=== PATIENT | female | born 1945 | race Caucasian/White ===

== ENCOUNTER 2016-08-17 14:35 | Inpatient (IN) | payer OTHER, MEDICARE ==
[~2016-08-17] VITALS: Ht 172.7 cm; Wt 78.5 kg
[2016-08-17] VITALS (8 sets, daily range): BP systolic 105–160; BP diastolic 60–94; PULSE 78–91; RESP 14–24; TEMP 97.8–98.2; O2SAT 88–95
[~2016-08-17 14:35] MED LIST: ADVAI500I PO; ATOR40TA PO; BUPR-86 PO; CALC500T21 PO; DUONI NEB; LISI-363 PO; METO25CR PO; OMEP20TA39 PO; OXYB5TAB PO; PRED20 PO; SPIRCAP INH; XANA0.5T PO; Z.0.OXYGENDME NC; ZITHTAB6 PO
[2016-08-17] MEDS: RESP: ALBUTEROL 2.5 MG/IPRATROPIUM 0.5 MG NEB (SCH) INH ×2 (15:14→15:15)
[2016-08-17] MEDS ORDERED: methylPREDNISolone SOD SUCC 125 MG/2 ML VIAL IVP ONE (15:15)
[2016-08-17] MEDS ORDERED: SODIUM CHLORIDE 0.9% FLUSH 5 ML FLUSH IVF PRN (15:15)
--- NOTE | 2016-08-17 16:04 | RADRPT ---
EXAM DATE/TIME: 08/17/2016 15:31 [facility] COMPARISON: CHEST PA & LAT, April 04, 2016, 11:23. CHEST SINGLE AP, May 05, 2015, 9:45. INDICATIONS : Shortness of breath, cough, congestion. MEDICAL HISTORY : Hypertension. Chronic obstructive pulmonary disease. Asthma. SURGICAL HISTORY : None. ENCOUNTER: Initial ACUITY: 2 days PAIN SCORE: 2/10 LOCATION: Bilateral upper chest FINDINGS: A single view of the chest demonstrates the lungs to be symmetrically aerated without evidence of mas s, infiltrate or effusion. There is hyperaeration of both lung cedeno. The cardiomediastinal contours are unremarkable. Osseous structures are intact. CONCLUSION: No acute disease. No significant change has occurred. Jose C Duval MD on August 17, 2016 at 16:02 Board Certified Radiologist. This report was verified electronically.
[2016-08-17 16:10] LABS: BASOPHIL # 0.1 TH/MM3 (0-0.2); BASOPHIL % 0.8 % (0.0-2.0); EOSINOPHIL # 0.1 TH/MM3 (0-0.4); EOSINOPHIL % 0.8 % (0.0-4.0); HEMATOCRIT 43.5 % (35.0-46.0); HEMO FLAGS DIFF FINAL; LYMPH % 20.2 % (9.0-44.0); LYMPHOCYTE # 1.5 TH/MM3 (1.0-4.8); MEAN CELL VOLUME 89.8 FL (80.0-100.0); MEAN CORPUSCULAR HEMOGLOBIN 29.6 PG (27.0-34.0); MONO % 11.9 % (0.0-8.0); NEUT % 66.3 % (16.0-70.0); PLATELET COUNT 229 TH/MM3 (150-450); RED BLOOD COUNT 4.84 MIL/MM3 (4.00-5.30); RED CELL DISTRIBUTION WIDTH 13.5 % (11.6-17.2); WHITE BLOOD COUNT 7.5 TH/MM3 (4.0-11.0)
[2016-08-17] MEDS ORDERED: LEVOFLOXACIN 750 MG PREMIX INJ 150 ML IV ONE (16:15)
[2016-08-17] MEDS ORDERED: CALC1TAB55 PO (16:17)
[2016-08-17] MEDS ORDERED: LISI-515 PO (16:17)
[2016-08-17] MEDS ORDERED: TOPR25TA PO (16:17)
[2016-08-17] MEDS ORDERED: ALPR0.5T3 PO (16:17)
[2016-08-17] MEDS ORDERED: BUPR150CR PO (16:17)
[2016-08-17] MEDS ORDERED: SPIRCAP INH (16:17)
[2016-08-17] MEDS ORDERED: FURO1TAB62 PO (16:17)
[2016-08-17] MEDS ORDERED: OMEP20TA PO (16:17)
[2016-08-17] MEDS ORDERED: ADVA500A INH (16:17)
[2016-08-17] MEDS ORDERED: OXYB5TAB PO (16:17)
[2016-08-17] MEDS ORDERED: ATOR40TA16 PO (16:17)
[2016-08-17] MEDS ORDERED: AMLO5TAB2 PO (16:17)
[2016-08-17] MEDS ORDERED: IPRASOL INH (16:17)
[2016-08-17 16:36] LABS: APTT (PATIENT) 29.2 SEC (24.3-30.1); PROTHROMBIN TIME - PATIENT 10.8 SEC (9.8-11.6)
[2016-08-17 16:43] LABS: BLOOD GAS BASE EXCESS 1.5 mmol/L (-2-2); BLOOD GAS CARBOXYHEMOGLOBIN 1.9 % (0-4); BLOOD GAS HCO3 26 mmol/L (22-26); BLOOD GAS METHEMOGLOBIN 2.1 % (0-2); BLOOD GAS O2 HGB SATURATION 89 % (90-100); BLOOD GAS OXYGEN CONTENT 17.8 Vol % (12.0-20.0); BLOOD GAS PCO2 41 mmHg (38-42); BLOOD GAS PO2 64 mmHG (61-120); BLOOD GAS TOTAL HGB 14.3 G/DL (12.0-16.0); TEMP CORR TO 98.6
[2016-08-17 16:44] LABS: CRITICAL VALUE YES; DRAW SITE LT RADIAL; LITER FLOW 4 L/M; NUMBER OF ARTERIAL PUNCTURES 1; OXYGEN DEVICE NASAL CANNULA; STAT YES; ULNAR PULSE PRESENT
[2016-08-17 16:50] LABS: ANION GAP 7 MEQ/L (5-15)
[2016-08-17 16:55] LABS: ALKALINE PHOSPHATASE 85 U/L (45-117); ALT (GPT) 21 U/L (10-53); AST (GOT) 20 U/L (15-37); BICARBONATE 26.8 MEQ/L (21.0-32.0); BLOOD UREA NITROGEN 17 MG/DL (7-18); CHLORIDE 105 MEQ/L (98-107); GLOMERULAR FILTRATION RATE 51 ML/MIN (>89); SODIUM (NA) 139 MEQ/L (136-145); TOTAL BILIRUBIN ADULT 0.5 MG/DL (0.2-1.0)
[2016-08-17 16:58] LABS: POTASSIUM 4.2 MEQ/L (3.5-5.1)
[2016-08-17] MEDS ORDERED: ENOXAPARIN SODIUM 80 MG/0.8 ML SYRINGE SQ ONE (17:15)
--- NOTE | 2016-08-17 17:37 | PD ---
HPI Chief Complaint: Respiratory Distress Time Seen by Provider: 15:05 Travel History International Travel<30 days: No Contact w/Intl Traveler<30days: No Traveled to known affect area: No History of Present Illness HPI Patient is a 71 year old female who comes in complaining of SOB. She has history of COPD and wears oxygen at home. She says for the last 4 days she has had increasing shortness of breath. She has been using her nebulizers at home without much relief. She denies fever or chills. She has had a cough. She says she has some chest tightness and pain in her back. She denies nausea or vomiting. She denies swelling to her legs. She says this feels similar to past COPD exacerbations. Most recently she was here in May and had to be intubated. PFSH Past Medical History Hx Anticoagulant Therapy: Yes (PLAVIX) Asthma: Yes ("not now - but had as child" ) Autoimmune Disease: No Anxiety: Yes Depression: Yes Heart Rhythm Problems: No Cancer: No Cardiac Catheterization: Yes (FEBRUARY 2015) Cardiovascular Problems: Yes (CHF) High Cholesterol: Yes Chest Pain: Yes (OK cardiac cath x1 no stent) COPD: Yes Diminished Hearing: No Endocrine: No Gastrointestinal Disorders: Yes GERD: Yes Genitourinary: Yes (OVERACTIVE BLADDER) Hiatal Hernia: No Hypertension: Yes Immune Disorder: No Implanted Vascular Access Dvce: Yes Musculoskeletal: Yes (DJD ) Neurologic: Yes Psychiatric: Yes Reproductive: Yes (OVARIAN CYST REMOVAL ) Immunizations Current: Yes Sleep Apnea: Yes Ulcer: No Tetanus Vaccination: < 5 Years Menopausal: Yes Ovarian Cysts: Yes (RUPTURE WITH PARTIAL OVARY REMOVAL) Past Surgical History Abdominal Surgery: Yes (APPENDECTOMY) Body Medical Devices: PLATE IN LEFT WRIST Cardiac Surgery: No Endocrine Surgery: No Eye Surgery: No Gynecologic Surgery: Yes (UTERINE SUSPENSION/ OVARIAN CYST REPAIR.) Joint Replacement: Yes (RIGHT SHOULDER "NOT SURE WHAT'S IN THERE") Oral Surgery: Yes (sleep apnea surgery, uvula removed and airway opened up 1998 ) Thoracic Surgery: No Other Surgery: Yes (DEVIATED SEPTUM REPAIR) Social History Alcohol Use: Yes (SOCIALLY) Tobacco Use: No (QUIT FEBRUARY 2015) Substance Use: No Allergies-Medications (Allergen,Severity, Reaction): Coded Allergies: No Known Allergies (Unverified , 08/17/16) Reported Meds & Prescriptions Reported Meds & Active Scripts Active Reported Amlodipine (Amlodipine Besylate) 5 Mg Tab 5 Mg PO DAILY Lasix (Furosemide) 20 Mg Tab 20 Mg PO DAILY PRN Spiriva Handihaler (Tiotropium Inh) 18 Mcg Cap 18 Mcg INH DAILY 1 capsule = 18 mcg Oxybutynin ER 24 HR (Oxybutynin Chloride) 5 Mg Tab 5 Mg PO HS Omeprazole 20 Mg Tab 20 Mg PO DAILY Toprol XL (Metoprolol Succinate) 25 Mg Tab 25 Mg PO HS Lisinopril 20 Mg Tab 20 Mg PO DAILY Calcium 500 +D3 (Calcium Carbonate-Cholecalciferol) 500-600 Mg-Unit Tab 2 Tab PO DAILY Wellbutrin SR 12 HR (Bupropion HCl) 150 Mg Tab 150 Mg PO DAILY Atorvastatin (Atorvastatin Calcium) 40 Mg Tab 40 Mg PO HS Alprazolam 0.5 Mg Tab 0.5 Mg PO HS Duoneb (Ipratropium-Albuterol Neb) 0.5-2.5 Mg/3 Ml Neb 1 Nebule INH Q4HR NEB PRN Advair Diskus Inh (Fluticasone-Salmeterol Inh) 500-50 Mcg/Blist Aer 1 Puff INH BID Rinse mouth after use. Review of Systems Except as stated in HPI: all other systems reviewed are Neg General / Constitutional: No: Fever, Chills Eyes: No: Blurred Vision HENT: No: Headaches, Lightheadedness Respiratory: Positive: Cough, Shortness of Breath Gastrointestinal: No: Nausea, Vomiting Genitourinary: No: Dysuria Musculoskeletal: No: Edema Skin: No Rash, No Change in Pigmentation Neurologic: No: Weakness, Dizziness Physical Exam Narrative GENERAL: Awake and alert in mild respiratory distress. Unable to speak in full sentences. SKIN: Warm and dry. HEAD: Atraumatic. Normocephalic. EYES: Pupils equal and round. No scleral icterus. ENT: Mucous membranes pink and moist. NECK: Trachea midline. No JVD. CARDIOVASCULAR: Regular rate and rhythm. No murmur appreciated. RESPIRATORY: Breath sounds equal bilaterally. Diffuse wheezing bilaterally. GASTROINTESTINAL: Abdomen soft, non-tender, nondistended. Hepatic and splenic margins not palpable. MUSCULOSKELETAL: No obvious deformities. No clubbing. No cyanosis. No edema. NEUROLOGICAL: Awake and alert. No obvious cranial nerve deficits. Motor grossly within normal limits. PSYCHIATRIC: Appropriate mood and affect; insight and judgment normal. Data Data Last Documented VS Vital Signs Date Time Temp Pulse Resp B/P Pulse Ox O2 Delivery O2 Flow Rate FiO2 08/17/16 17:23 87 22 160/72 95 Nasal Cannula 4 08/17/16 14:38 97.8 Orders Complete Blood Count With Diff (08/17/16 15:10) Comprehensive Metabolic Panel (08/17/16 15:10) B-Type Natriuretic Peptide (08/17/16 15:10) Act Partial Throm Time (Ptt) (08/17/16 15:10) Prothrombin Time / Inr (Pt) (08/17/16 15:10) Troponin I (08/17/16 15:10) Iv Access Insert/Monitor (08/17/16 15:10) Ecg Monitoring (08/17/16 15:10) Oximetry (08/17/16 15:10) Oxygen Administration (08/17/16 15:10) Chest, Single Ap (08/17/16 15:10) Sodium Chloride 0.9% Flush (Ns Flush) (08/17/16 15:15) Methylprednisolone So Succ Inj (Solumedr (08/17/16 15:15) Albuterol-Ipratropium Neb (Duoneb Neb) (08/17/16 15:15) Levofloxacin 750 Mg Premix Inj (Levaquin (08/17/16 16:15) Arterial Blood Gas (Abg) (08/17/16 ) Enoxaparin Inj (Lovenox Inj) (08/17/16 17:15) Ct Pulmonary Angiogram (08/17/16 17:14) Electrocardiogram (08/17/16 15:11) Echo 2d Comp W/Dopp(Routine) (08/17/16 ) Admit Order (Ed Use Only) (08/17/16 ) Labs Laboratory Tests Test 08/17/16 08/17/16 15:15 16:35 White Blood Count 7.5 TH/MM3 Red Blood Count 4.84 MIL/MM3 Hemoglobin 14.4 GM/DL Hematocrit 43.5 % Mean Corpuscular Volume 89.8 FL Mean Corpuscular Hemoglobin 29.6 PG Mean Corpuscular Hemoglobin 33.0 % Concent Red Cell Distribution Width 13.5 % Platelet Count 229 TH/MM3 Mean Platelet Volume 8.8 FL Neutrophils (%) (Auto) 66.3 % Lymphocytes (%) (Auto) 20.2 % Monocytes (%) (Auto) 11.9 % Eosinophils (%) (Auto) 0.8 % Basophils (%) (Auto) 0.8 % Neutrophils # (Auto) 5.0 TH/MM3 Lymphocytes # (Auto) 1.5 TH/MM3 Monocytes # (Auto) 0.9 TH/MM3 Eosinophils # (Auto) 0.1 TH/MM3 Basophils # (Auto) 0.1 TH/MM3 CBC Comment DIFF FINAL Differential Comment Prothrombin Time 10.8 SEC Prothromb Time International 1.0 RATIO Ratio Activated Partial 29.2 SEC Thromboplast Time Sodium Level 139 MEQ/L Potassium Level 4.2 MEQ/L Chloride Level 105 MEQ/L Carbon Dioxide Level 26.8 MEQ/L Anion Gap 7 MEQ/L Blood Urea Nitrogen 17 MG/DL Creatinine 1.07 MG/DL Estimat Glomerular Filtration 51 ML/MIN Rate Random Glucose 80 MG/DL Calcium Level 9.5 MG/DL Total Bilirubin 0.5 MG/DL Aspartate Amino Transf 20 U/L (AST/SGOT) Alanine Aminotransferase 21 U/L (ALT/SGPT) Alkaline Phosphatase 85 U/L Troponin I 0.38 NG/ML B-Type Natriuretic Peptide 78 PG/ML Total Protein 7.9 GM/DL Albumin 4.1 GM/DL Blood Gas Puncture Site LT RADIAL Blood Gas Patient Temperature 98.6 Blood Gas HCO3 26 mmol/L Blood Gas Base Excess 1.5 mmol/L Blood Gas Oxygen Saturation 89 % Arterial Blood pH 7.41 Arterial Blood Partial 41 mmHg Pressure CO2 Arterial Blood Partial 64 mmHG Pressure O2 Arterial Blood Oxygen Content 17.8 Vol % Arterial Blood 1.9 % Carboxyhemoglobin Arterial Blood Methemoglobin 2.1 % Blood Gas Hemoglobin 14.3 G/DL Oxygen Delivery Device NASAL CANNULA Blood Gas Liter Flow 4 L/M MDM Medical Decision Making Medical Screen Exam Complete: Yes Emergency Medical Condition: Yes Medical Record Reviewed: Yes Interpretation(s) ECG shows sinus rhythm, no ST elevation. Unchanged from previous ECG. Differential Diagnosis COPD exacerbation versus pneumonia versus ACS versus bronchitis versus CHF exacerbation Narrative Course Patient is a 71-year-old female who comes in complaining of shortness of breath. Exam shows diffuse wheezing, patient is unable to speak in full sentences. IV established, patient connected to the oil burner. Labs sent. Labs show a troponin of 0.38. ECG shows no signs of STEMI. I spoke with Dr. Eng who suggests giving her Lovenox, but she believes that the troponin is likely due to her hypoxia. Chest x-ray shows no signs of pneumonia, and hyperexpanded lungs seen. Patient given 3 duo nebs, Solu-Medrol. Given Lovenox. Given Levaquin. Patient admitted for further management. Diagnosis Primary Impression: COPD exacerbation Additional Impression: NSTEMI (non-ST elevated myocardial infarction) Admitting Information Admitting Physician Requests: Admit Sofía eMraz MD Aug 17, 2016 17:37
[2016-08-17] MEDS ORDERED: IOHEXOL 350 MG/ML 10 ML VIAL (for RAD DIAG) IV ONE (17:38)
--- NOTE | 2016-08-17 17:51 | RADRPT ---
EXAM DATE/TIME: 08/17/2016 17:36 [facility] COMPARISON: No previous studies available for comparison. INDICATIONS : Shortness of breath starting yesterday; worsening today; evaluate for pulmonary embolism. IV CONTRAST: 75 cc Omnipaque 350 (iohexol) IV RADIATION DOSE: 23.48 CTDIvol (mGy) MEDICAL HISTORY : Cardiovascular disease. Hypertension. SURGICAL HISTORY : None. ENCOUNTER: Initial ACUITY: 2 days PAIN SCALE: 0/10 LOCATION: chest TECHNIQUE: Volumetric scanning of the chest was performed using a pulmonary embolism protocol MIP images were re constructed. Using automated exposure control and adjustment of the mA and/or kV according to patien t size, radiation dose was kept as low as reasonably achievable to obtain optimal diagnostic quality images. FINDINGS: There are no filling defects to suggest pulmonary embolic disease. There is peribronchial thickening at both lung bases associated with mild bronchiectasis and mucoid plugging of subsegmental bronchi bi laterally. Is also mild emphysema predominantly paraseptal. No dense consolidation. No pleural or pericardial ef fusion. No acute findings in the upper abdomen. CONCLUSION: 1. Negative for pulmonary embolic disease. 2. Peribronchial thickening and mild bronchiectasis predominantly in the lower lobes with multifocal mucoid plugging of subsegmental bronchi bilaterally characteristic of bronchitis. Robert Uriostegui MD on August 17, 2016 at 17:47 Board Certified Radiologist. This report was verified electronically.
[2016-08-17] MEDS ORDERED: ACETAMINOPHEN 325 MG TAB PO PRN ×2 (18:30)
[2016-08-17] MEDS ORDERED: NALOXONE HCL 0.4 MG/ML AMP IV PRN (18:30)
[2016-08-17] MEDS ORDERED: ONDANSETRON HCL 4 MG/2 ML VIAL IVP PRN (18:30)
--- NOTE | 2016-08-17 18:36 | MB ---
cc: CHRISSY BROWN MD DATE OF CONSULTATION 08/17/2016 REASON FOR CONSULTATION Indeterminate troponin. HISTORY OF PRESENT ILLNESS Ms. Escobar is a 71-year-old female who does have a history of Takotsubo cardiomyopathy. She had an EF of 30% and no significant coronary artery disease by cardiac catheterization in March 2015. The patient since then has done well from a cardiac perspective with medical management. She reports over the last couple days her COPD has been acting up. She had progressive symptoms and shortness of breath today with a home pulse ox of 80%. She subsequently came to the emergency room. The patient has had progressive coughing and wheezing. This was associated with back pain and chest pain. PAST MEDICAL HISTORY Significant for: 1. COPD. 2. Gastroesophageal reflux disease. 3. Hypertension. 4. Hyperlipidemia. 5. Takotsubo cardiomyopathy. PAST SURGICAL HISTORY Includes: 1. right shoulder surgery. 2. Uterine suspension surgery. 3. Appendectomy. ALLERGIES NO KNOWN DRUG ALLERGIES. MEDICATIONS Her outpatient medications include: 1. Lisinopril. 2. Wellbutrin. 3. Oxybutynin. 4. Spiriva. 5. Xanax. 6. Advair. 7. DuoNeb. 8. Metoprolol. 9. Amlodipine. 10. Atorvastatin. 11. Lasix. 12. Omeprazole. SOCIAL HISTORY The patient is a former smoker. FAMILY HISTORY Noncontributory. PHYSICAL EXAMINATION VITAL SIGNS: Current vital signs are 97.8, 91, 14, 137/94. GENERAL: She is a well appearing female who is in no apparent distress. NECK: Free from JVD. LUNGS: The lungs have wheezing throughout. CARDIOVASCULAR: On examination she has a normal S1-S2. No rubs or gallops appreciated. ABDOMEN: Soft. EXTREMITIES: Are free from edema. LABORATORY DATA Lab values show an initial troponin of 0.38 with creatinine of 1.0 and a white count of 7.5. IMAGING Chest x-ray is negative for any acute process. EKG shows normal sinus rhythm without any acute changes. IMPRESSION Non-ST elevation myocardial infarction - the patient has almost certainly had a secondary myocardial infarction as she was quite hypoxic at home with a saturation of 80. In the emergency room her blood gas shows a pO2 of 64. At this point heparinization is not unreasonable. I would continue to rule her out. We can check an echocardiogram to evaluate for any change in her EF. COPD - this is being managed by the primary team. History of nonischemic cardiomyopathy - again we will check an echocardiogram for further evaluation of her ejection fraction. Mariella Rivero/KK /5:26 PM /6:24 PM
[2016-08-17] MEDS ORDERED: ENALAPRILAT 1.25 MG/ML VIAL IV PUSH PRN (18:45)
--- NOTE | 2016-08-17 18:53 | HHI.HP ---
HPI Service [facility] Antonio Solitario MD Admission Diagnosis NSTEMI, COPD Diagnoses: (1) COPD exacerbation Chief Complaint: Worsening SOB/dyspnea Travel History International Travel<30 Days: No Contact w/Intl Traveler <30 Da: No Traveled to Known Affected Are: No Sepsis Criteria SIRS Criteria (2 or more): Heart rate over 90 History of Present Illness Patient is a 71-year-old with primary medical history of COPD, CHF HTN who came into the hospital with complaints of worsening shortness of breath and dyspnea. States that she is on home O2 on 2 L nasal cannula however, last night even with oxygen at 3-4L she is unable to walk a few steps in her house. She was doing her nebulization and other inhalers at home minimal relief. States she feels hot, checked her temperature but it wasn't 98.9. Feeling "sik and achy. "She tried to contact her animal care giver Dr. Pandey unable to get hold of him, that she decided to go to the ED. States that she feels congested unable to move air, she has a little bit of mucus to expectorate. Patient quit smoking a urinary half ago. Diagnosed with COPD. Last hospital admission was last year in May, states she was intubated for about 24 hours, was discharged home with steroids. She was following with Dr. pandey last follow-up was June 2016. She also sees business planning director, Dr. Eng. Chest x-ray showed no acute disease. No significant change has occurred. CT pulmonary angiogram showed negative for pulmonary embolic disease. Peribronchial thickening and mild bronchiectasis predominantly in the lower lobes and multifocal mucoid plugging of subsegmental bronchi bilaterally characteristic of bronchitis. No leukocytosis noted, CBC unremarkable except for slightly elevated monocyte at 11.9. ABG with O2 sat at 89, history of COPD. BNP 78. HAM FACER 1.07 with EGFR of 51, history of chronic kidney disease. Troponin slightly elevated at 0.38. Patient was given Levaquin IV, duonebs, Solu-Medrol in the ED. Patient states after doing nebs and Solu-Medrol she had some relief improving SOB/dyspnea. Complaints of being dehydrated and having dry mouth. Otherwise, denies chest pain, headache, dizziness, palpitations, chills, diaphoresis, n/v/d. Review of Systems Constitutional: COMPLAINS OF: Fever, DENIES: Diaphoretic episodes, Chills, Change in appetite Endocrine: DENIES: Heat/cold intolerance Eyes: DENIES: Blurred vision, Eye pain Respiratory: COMPLAINS OF: Apneas, Cough, Wheezing, Sputum production, Shortness of breath, DENIES: Hemoptysis Cardiovascular: COMPLAINS OF: Dyspnea on Exertion, Orthopnea, DENIES: Chest pain, Palpitations, Lower Extremity Edema, Claudication Gastrointestinal: COMPLAINS OF: Constipation, DENIES: Abdominal pain, Diarrhea , Nausea, Vomiting Genitourinary: DENIES: Urinary frequency, Urgency, Hematuria, Dysuria Musculoskeletal: DENIES: Joint pain Integumentary: DENIES: Abnormal pigmentation Neurologic: DENIES: Abnormal gait, Speech Problems, Tremor Psychiatric: COMPLAINS OF: Anxiety, Depression Past Family Social History Past Medical History COPD CHF [place] Cardiomyopathy CKD HTN Overactive bladder HLD Depression Anxiety DJD Past Surgical History Cardiac catheterization Ovarian cyst removal Appendectomy Plate in the left wrist Uterine suspension/ovarian cyst repair Right shoulder surgery Debrided septum repair Reported Medications Amlodipine (Amlodipine Besylate) 5 Mg Tab 5 Mg PO DAILY Lasix (Furosemide) 20 Mg Tab 20 Mg PO DAILY PRN Spiriva Handihaler (Tiotropium Inh) 18 Mcg Cap 18 Mcg INH DAILY 1 capsule = 18 mcg Oxybutynin ER 24 HR (Oxybutynin Chloride) 5 Mg Tab 5 Mg PO HS Omeprazole 20 Mg Tab 20 Mg PO DAILY Toprol XL (Metoprolol Succinate) 25 Mg Tab 25 Mg PO HS Lisinopril 20 Mg Tab 20 Mg PO DAILY Calcium 500 +D3 (Calcium Carbonate-Cholecalciferol) 500-600 Mg-Unit Tab 2 Tab PO DAILY Wellbutrin SR 12 HR (Bupropion HCl) 150 Mg Tab 150 Mg PO DAILY Atorvastatin (Atorvastatin Calcium) 40 Mg Tab 40 Mg PO HS Alprazolam 0.5 Mg Tab 0.5 Mg PO HS Duoneb (Ipratropium-Albuterol Neb) 0.5-2.5 Mg/3 Ml Neb 1 Nebule INH Q4HR NEB PRN Advair Diskus Inh (Fluticasone-Salmeterol Inh) 500-50 Mcg/Blist Aer 1 Puff INH BID Rinse mouth after use. Allergies: Coded Allergies: No Known Allergies (Unverified , 08/17/16) Active Ordered Medications Current Medications Medications (Trade) Dose Ordered Sig/Jayden Route Start Time Stop Time Status Last Admin (NS Flush) 2 ml UNSCH PRN IVF 08/17/16 15:15 Family History Mother with COPD Sister CVA Social History Former smoker quit 1-1/2 years ago, smoking relapse 6 months ago with E vapor but also quit Occasional alcohol use Denies illicit drug use Physical Exam Vital Signs Vital Signs Date Time Temp Pulse Resp B/P Pulse Ox O2 Delivery O2 Flow Rate FiO2 08/17/16 17:23 87 22 160/72 95 Nasal Cannula 4 08/17/16 15:19 Nasal Cannula 4 08/17/16 15:19 100 Nasal Cannula 4 08/17/16 15:00 96 Nasal Cannula 4 08/17/16 14:38 97.8 91 14 137/94 88 Room Air 4 Physical Exam GENERAL: This is a well-nourished, well-developed patient, in mild respiratory distress. SKIN: No rashes, ecchymoses or lesions. Cool and dry. HEAD: Atraumatic. Normocephalic. No temporal or scalp tenderness. EYES: Pupils equal round and reactive. Extraocular motions intact. No scleral icterus. No injection or drainage. ENT: Nose without bleeding, purulent drainage or septal hematoma. Throat without erythema, tonsillar hypertrophy or exudate. Uvula midline. Airway patent. NECK: Trachea midline. No JVD or lymphadenopathy. Supple, nontender, no meningeal signs. CARDIOVASCULAR: Regular rate and rhythm without murmurs, gallops, or rubs. RESPIRATORY:Diffuse rhonchi bilaterally, diffuse wheezes. Poor to fair air exchange. Unable to finish sentence without gasping for air. Notable occasional cough. Needs to be propped in structure sitting up to ease breathing. GASTROINTESTINAL: Abdomen soft, non-tender, nondistended. Bowel sounds hypoactive 4. MUSCULOSKELETAL: Extremities without clubbing, cyanosis, or edema. No joint tenderness, effusion, or edema noted. NEUROLOGICAL: Awake and alert. Motor and sensory grossly within normal limits. Five out of 5 muscle strength in all muscle groups. Normal speech. Laboratory Laboratory Tests Test 08/17/16 08/17/16 15:15 16:35 White Blood Count 7.5 Red Blood Count 4.84 Hemoglobin 14.4 Hematocrit 43.5 Mean Corpuscular Volume 89.8 Mean Corpuscular Hemoglobin 29.6 Mean Corpuscular Hemoglobin 33.0 Concent Red Cell Distribution Width 13.5 Platelet Count 229 Mean Platelet Volume 8.8 Neutrophils (%) (Auto) 66.3 Lymphocytes (%) (Auto) 20.2 Monocytes (%) (Auto) 11.9 Eosinophils (%) (Auto) 0.8 Basophils (%) (Auto) 0.8 Neutrophils # (Auto) 5.0 Lymphocytes # (Auto) 1.5 Monocytes # (Auto) 0.9 Eosinophils # (Auto) 0.1 Basophils # (Auto) 0.1 CBC Comment DIFF FINAL Differential Comment Prothrombin Time 10.8 Prothromb Time International 1.0 Ratio Activated Partial 29.2 Thromboplast Time Sodium Level 139 Potassium Level 4.2 Chloride Level 105 Carbon Dioxide Level 26.8 Anion Gap 7 Blood Urea Nitrogen 17 Creatinine 1.07 Estimat Glomerular Filtration 51 Rate Random Glucose 80 Calcium Level 9.5 Total Bilirubin 0.5 Aspartate Amino Transf 20 (AST/SGOT) Alanine Aminotransferase 21 (ALT/SGPT) Alkaline Phosphatase 85 Troponin I 0.38 B-Type Natriuretic Peptide 78 Total Protein 7.9 Albumin 4.1 Blood Gas Puncture Site LT RADIAL Blood Gas Patient Temperature 98.6 Blood Gas HCO3 26 Blood Gas Base Excess 1.5 Blood Gas Oxygen Saturation 89 Arterial Blood pH 7.41 Arterial Blood Partial 41 Pressure CO2 Arterial Blood Partial 64 Pressure O2 Arterial Blood Oxygen Content 17.8 Arterial Blood 1.9 Carboxyhemoglobin Arterial Blood Methemoglobin 2.1 Blood Gas Hemoglobin 14.3 Oxygen Delivery Device NASAL CANNULA Blood Gas Liter Flow 4 Result Diagram: 08/17/16 1515 08/17/16 1515 Imaging Last Impressions Chest X-Ray 08/17/16 1510 Signed Impressions: Service Date/Time: Wednesday, August 17, 2016 15:31 - CONCLUSION: No acute disease. No significant change has occurred. Jose C Duval MD Assessment and Plan Problem List: (1) Hypertension ICD Code: I10 Status: Chronic (2) Hyperlipidemia ICD Code: E78.5 Status: Chronic (3) Chronic kidney disease, stage 3 ICD Code: N18.3 Status: Chronic (4) COPD exacerbation ICD Code: J44.1 Status: Acute (5) CHF (congestive heart failure) ICD Code: I50.9 Status: Chronic (6) Elevated troponin ICD Code: R79.89 Status: Acute Assessment and Plan Patient is a 71-year-old female who came into the hospital with increasing shortness of breath and dyspnea. Last admission for COPD exacerbation May 2016, patient was intubated for 24 hours during that time. COPD exacerbation, bronchitis - Chest x-ray showed no acute disease. No significant change has occurred. - CT pulmonary angiogram showed negative for pulmonary embolic disease. Peribronchial thickening and mild bronchiectasis predominantly in the lower lobes and multifocal mucoid plugging of subsegmental bronchi bilaterally characteristic of bronchitis. - Levaquin IV - Solu-Medrol IV - Duonebs nebs scheduled and when necessary - Will consult Dr. Pandey - Monitor respiratory status - incentive spirometry - sputum culture and gram stain - physical therapy Elevated Troponin - troponin 0.38, possibly demand O2 secondary to COPD exacerbation, will trend troponins - Will consult Dr. Eng to follow - EKG sinus rhythm with nonspecific ST and T-wave abnormality, heart rate 87 CHF - does not appear to be with exacerbation. No notable edema. BNP 78. - Monitor for fluid overload CKD - avoid nephrotoxins. Monitor BMP HTN - elevated BP upon admission - Continue Norvasc, lisinopril, metoprolol - Vasotec as needed HLD - continue Lipitor Depression/ anxiety - continue Wellbutrin, Xanax. Constipation - reports incomplete BM. Colace, Senokot. Monitor BM. DVT prop - Lovenox GI prop - pantoprazole Written by Anushka Xie, acting as scribe for Dr. Kaufman on 08/17/16 at 18:20. Code Status Full code Discussed Condition With Patient, nursing, and ED attending. Physician Certification 2 Midnight Certification Type: Admission for Inpatient Services Order for Inpatient Services The services are ordered in accordance with Medicare regulations or non- Medicare payer requirements, as applicable. In the case of services not specified as inpatient-only, they are appropriately provided as inpatient services in accordance with the 2-midnight benchmark. Estimated LOS (days): 3 days is the estimated time the patient will need to remain in the hospital, assuming treatment plan goals are met and no additional complications. Post-Hospital Plan: Home Notes: The documentation accurately reflects the work performed [id number] by me on at 18:20. Anushka Norton Aug 17, 2016 18:53 Varun Kaufman DO Aug 17, 2016 19:11
[2016-08-17] MEDS: SENNOSIDES 8.6 MG TAB PO SCH (19:29)
[2016-08-17] MEDS ORDERED: RESP: ALBUTEROL 2.5 MG/IPRATROPIUM 0.5 MG NEB (SCH) NEB (20:00)
[2016-08-17] MEDS: DOCUSATE SODIUM 100 MG CAP PO SCH (20:16)
[2016-08-17] MEDS: ALPRAZolam 0.5 MG TAB PO SCH (20:17)
[2016-08-17] MEDS: ATORVASTATIN 40 MG TAB PO SCH (20:17)
[2016-08-17] MEDS: METOPROLOL SUCCINATE 25 MG EXTENDED RELEASE TAB PO SCH (20:17)
[2016-08-17] MEDS: TOLTERODINE TARTRATE 2 MG CAP LA PO SCH (20:29)
[2016-08-17] MEDS: SODIUM CHLORIDE 0.9% FLUSH 5 ML FLUSH FLUSH SCH (20:29)
[2016-08-17] MEDS: RESP: ALBUTEROL 2.5 MG/IPRATROPIUM 0.5 MG NEB (PRN) NEB (20:52)
[2016-08-17] MEDS ORDERED: methylPREDNISolone SOD SUCC 40 MG/1 ML VIAL IV PUSH SCH (22:00)
--- NOTE | 2016-08-17 23:34 | MB ---
cc: Savannah CALERO M.D. DATE OF CONSULTATION 08/17/15 REASON FOR CONSULTATION COPD and dyspnea. HISTORY OF PRESENT ILLNESS This is a 71-year-old white female who has had a history of COPD and CHF who was brought to the emergency room with progressive shortness of breath. The patient does have home oxygen which she used up to 3 liters by nasal cannula and stated that she was unable to ambulate much and became extremely dyspneic. She was also coughing up a little foamy sputum and has been using nebulizers without much relief. Following arrival in the emergency room, a chest x-ray was done which showed no active infiltrates. A CT pulmonary angiogram was negative for PE. There is mild bronchiectasis and peribronchial thickening and mucoid plugging of the subsegmental bronchi. The white count was elevated. The patient has been admitted and now is started on IV antibiotics including Levaquin and IV Solu-Medrol. She is feeling somewhat better now and presently on 2.5 liters of oxygen. PAST MEDICAL HISTORY 1. History of CHF, 2. Chronic obstructive pulmonary disease 3. Cardiomyopathy, 4. History of hypertension 5. History of depression and anxiety 6. Degenerative joint disease 7. Ovarian cyst resected 8. Appendectomy 9. Surgery on the left wrist and right shoulder 10. Uterine suspension 11. Nasal septal repair. HABITS The patient smoked one-pack per day for over 35 years and has quit. Drinks alcohol occasionally. FAMILY HISTORY History of COPD in her mother. ALLERGIES None. MEDICATIONS 1. DuoNeb q.i.d. 2. Advair Diskus 500 X 50, one puff b.i.d. 3. atorvastatin 40 mg qhs 4. Xanax 0.5 mg p.r.n., 5. Wellbutrin 150 mg daily, 6. Omeprazole 20 mg a day, 7. Toprol XL 25 mg at bedtime, 8. Lisinopril 20 mg a day, 9. Lasix 20 mg daily 10. Spiriva 1 capsule a day. REVIEW OF SYSTEMS The patient has lost weight. She has mild leg swelling. Denies headaches or blackouts. She has urinary frequency. He has joint pains of her extremities and has had depression with anxiety. PHYSICAL EXAMINATION GENERAL: This is a thinly built elderly white female who is alert and moderately dyspneic at rest. VITAL SIGNS: Blood pressure 155/60, pulse is 88, respirations 22, temperature 98.2. She is on 4 liters of oxygen. HEENT: Head normocephalic. Pupils reactive and equal. Nasal mucosa edematous. Throat is mildly injected. NECK: Supple without venous distension. Trachea midline. CHEST: Equal movements with increased AP diameter and diffuse wheezes throughout both lung cedeno. Prolonged expirations. HEART: Sounds are regular, S1-S2. No murmur. No S3. ABDOMEN: Soft, nontender. No organomegaly. The bowel sounds are active. EXTREMITIES: No clubbing. No edema. No calf tenderness. NEUROLOGIC: Reflexes are normal. No gross motor or sensory deficits. Cranial nerves grossly intact. RECTAL: Exam is deferred. IMPRESSION 1. COPD with acute exacerbation 2. Severe emphysema 3. Hypertension and hyperlipidemia. 4. Chronic kidney disease. PLAN The patient has been started on Levaquin 750 mg IV daily, Solu-Medrol 40 mg IV q. six and nebulized DuoNeb solution every 4 hours while awake. Oxygen at 3 liters nasal cannula was started and the patient will be admitted to telemetry. Dr. Pandey will follow the patient from tomorrow. Thank you for this consultation. MD ERIKA Abdullahi/ /11:02 PM /11:20 PM
[2016-08-18] VITALS (10 sets, daily range): BP systolic 113–122; BP diastolic 57–68; PULSE 76–85; RESP 18–24; TEMP 97.5–98.3; O2SAT 92–97
[2016-08-18] MEDS: methylPREDNISolone SOD SUCC 40 MG/1 ML VIAL IV PUSH SCH ×5 (00:38→20:54)
[2016-08-18] MEDS: SODIUM CHLORIDE 0.9% FLUSH 5 ML FLUSH FLUSH PRN ×3 (00:38→11:27)
[2016-08-18] MEDS: RESP: ALBUTEROL 2.5 MG/IPRATROPIUM 0.5 MG NEB (PRN) NEB (05:05)
[2016-08-18 05:06] LABS: AUTOMATED NEUTROPHIL # 3.9 TH/MM3 (1.8-7.7); BASOPHIL % 0.2 % (0.0-2.0); HEMATOCRIT 39.6 % (35.0-46.0); HEMO FLAGS DIFF FINAL; LYMPH % 15.9 % (9.0-44.0); LYMPHOCYTE # 0.8 TH/MM3 (1.0-4.8); MEAN CELL VOLUME 88.9 FL (80.0-100.0); MEAN CORPUSCULAR HEMOGLOBIN 29.9 PG (27.0-34.0); MEAN CORPUSCULAR HGB CONC 33.6 % (32.0-36.0); NEUT % 80.9 % (16.0-70.0); PLATELET COUNT 209 TH/MM3 (150-450); RED BLOOD COUNT 4.46 MIL/MM3 (4.00-5.30); RED CELL DISTRIBUTION WIDTH 13.4 % (11.6-17.2); WHITE BLOOD COUNT 4.8 TH/MM3 (4.0-11.0)
[2016-08-18 05:39] LABS: ALKALINE PHOSPHATASE 75 U/L (45-117); ALT (GPT) 20 U/L (10-53); ANION GAP 10 MEQ/L (5-15); AST (GOT) 13 U/L (15-37); BICARBONATE 24.8 MEQ/L (21.0-32.0); BLOOD UREA NITROGEN 28 MG/DL (7-18); CHLORIDE 103 MEQ/L (98-107); GLOMERULAR FILTRATION RATE 37 ML/MIN (>89); POTASSIUM 4.1 MEQ/L (3.5-5.1); SODIUM (NA) 138 MEQ/L (136-145); TOTAL BILIRUBIN ADULT 0.3 MG/DL (0.2-1.0)
[2016-08-18] MEDS: RESP: ALBUTEROL 2.5 MG/IPRATROPIUM 0.5 MG NEB (SCH) NEB ×4 (09:10→19:31)
[2016-08-18] MEDS: SODIUM CHLORIDE 0.9% FLUSH 5 ML FLUSH FLUSH SCH ×2 (09:21→20:54)
[2016-08-18] MEDS: amLODIPine BESYLATE 5 MG TAB PO SCH (09:22)
[2016-08-18] MEDS: PANTOPRAZOLE SOD 20 MG DELAYED RELEASE TAB PO SCH (09:22)
[2016-08-18] MEDS: DOCUSATE SODIUM 100 MG CAP PO SCH ×2 (09:22→20:53)
[2016-08-18] MEDS: LISINOPRIL 20 MG TAB PO SCH (09:22)
[2016-08-18] MEDS: buPROPion HCL 150 MG SUSTAINED RELEASE TAB PO SCH (09:22)
[2016-08-18] MEDS: SENNOSIDES 8.6 MG TAB PO SCH (09:22)
--- NOTE | 2016-08-18 09:37 | HHI.PR ---
Subjective Remarks The patient was sitting up in bed. She said she was breathing a lot better. She denied any pain. She has not been having a productive cough. She says she does not like to use the incentive spirometer. Nursing and therapy at the bedside. Objective Vitals Vital Signs Date Time Temp Pulse Resp B/P Pulse Ox O2 Delivery O2 Flow Rate FiO2 08/18/16 09:11 96 Nasal Cannula 3.00 08/18/16 04:00 97.9 77 18 120/58 95 08/18/16 04:00 Nasal Cannula 4.00 08/18/16 01:04 98.2 80 24 113/68 95 08/18/16 00:13 95 Nasal Cannula 4.00 08/18/16 00:00 Nasal Cannula 4.00 08/17/16 23:00 98.2 80 24 115/68 95 08/17/16 22:30 Nasal Cannula 4.00 08/17/16 22:30 80 08/17/16 22:30 97.9 78 18 105/60 95 08/17/16 22:10 80 16 150/65 95 Nasal Cannula 4 08/17/16 22:06 94 Nasal Cannula 4 08/17/16 20:53 94 Nasal Cannula 3.50 08/17/16 20:00 95 Nasal Cannula 3.50 08/17/16 17:23 87 22 160/72 95 Nasal Cannula 4 08/17/16 15:19 Nasal Cannula 4 08/17/16 15:19 100 Nasal Cannula 4 08/17/16 15:00 96 Nasal Cannula 4 08/17/16 14:38 97.8 91 14 137/94 88 Room Air 4 I/O 08/17/16 08/17/16 08/17/16 08/18/16 08/18/16 08/18/16 06:59 14:59 22:59 06:59 14:59 22:59 Output Total 300 ml Balance -300 ml Output Urine Total 300 ml # Voids 1 Result Diagram: 08/18/16 0423 08/18/[address] Angiography 08/17/161713 Signed Impressions: Service Date/Time: Wednesday, August 17, 2016 17:36 - CONCLUSION: 1. Negative for pulmonary embolic disease. 2. Peribronchial thickening and mild bronchiectasis predominantly in the lower lobes with multifocal mucoid plugging of subsegmental bronchi bilaterally characteristic of bronchitis. Robert Uriostegui MD Chest X-Ray 08/17/16 1510 Signed Impressions: Service Date/Time: Wednesday, August 17, 2016 15:31 - CONCLUSION: No acute disease. No significant change has occurred. Jose C Duval MD Objective Remarks GENERAL: This is a well-nourished, well-developed patient, in NAD. SKIN: No rashes, ecchymoses or lesions. Cool and dry. HEAD: Atraumatic. Normocephalic. No temporal or scalp tenderness. EYES: Pupils equal round and reactive. Extraocular motions intact. No scleral icterus. No injection or drainage. ENT: Nose without bleeding, purulent drainage or septal hematoma. Throat without erythema, tonsillar hypertrophy or exudate. Uvula midline. Airway patent. NECK: Trachea midline. No JVD or lymphadenopathy. Supple, nontender, no meningeal signs. CARDIOVASCULAR: Regular rate and rhythm without murmurs, gallops, or rubs. RESPIRATORY:Diffuse rhonchi bilaterally, diffuse wheezes. Poor to fair air exchange. GASTROINTESTINAL: Abdomen soft, non-tender, nondistended. Bowel sounds hypoactive 4. MUSCULOSKELETAL: Extremities without clubbing, cyanosis, or edema. No joint tenderness, effusion, or edema noted. NEUROLOGICAL: Awake and alert. Motor and sensory grossly within normal limits. Five out of 5 muscle strength in all muscle groups. Normal speech. PSYCH: Mood and affect appropriate. Medications and IVs Current Medications Medications (Trade) Dose Ordered Sig/Jayden Route Start Time Stop Time Status Last Admin (Xanax) 0.5 mg HS PO 08/17/16 21:00 08/17/16 20:17 (Norvasc) 5 mg DAILY PO 08/18/16 09:00 08/18/16 09:22 (Lipitor) 40 mg HS PO 08/17/16 21:00 08/17/16 20:17 (Wellbutrin Sr) 150 mg DAILY PO 08/18/16 09:00 08/18/16 09:22 (Prinivil) 20 mg DAILY PO 08/18/16 09:00 08/18/16 09:22 (Toprol Xl) 25 mg HS PO 08/17/16 21:00 08/17/16 20:17 (Protonix) 20 mg DAILY PO 08/18/16 09:00 08/18/16 09:22 (Detrol La) 2 mg HS PO 08/17/16 21:00 08/17/16 20:29 (NS Flush) 2 ml UNSCH PRN FLUSH 08/17/16 18:30 08/18/16 06:12 (NS Flush) 2 ml BID FLUSH 08/17/16 21:00 08/18/16 09:21 (Tylenol) 650 mg Q4H PRN PO 08/17/16 18:30 (Zofran Inj) 4 mg Q6H PRN IVP 08/17/16 18:30 (Colace) 100 mg Q12HR PO 08/17/16 21:00 08/18/16 09:22 (Senokot) 17.2 mg DAILY PO 08/17/16 18:15 08/18/16 09:22 (Lovenox Inj) 40 mg Q24H SQ 08/18/16 17:30 (Tylenol) 650 mg Q6H PRN PO 08/17/16 18:30 (Roxicodone) 10 mg Q4H PRN PO 08/17/16 18:30 (Roxicodone) 5 mg Q4H PRN PO 08/17/16 18:30 Naloxone HCl 0.4 mg 0.4 mg UNSCH PRN IV 08/17/16 18:30 (Levaquin 750 Mg Premix Inj) 150 ml @ 100 mls/hr Q24H IV 08/18/16 16:00 (Vasotec Inj) 1.25 mg Q6H PRN IV PUSH 08/17/16 18:45 (SoluMEDROL INJ) 40 mg Q6HR IV PUSH 08/18/16 00:00 08/18/16 06:11 A/P Problem List: (1) Hypertension ICD Code: I10 Status: Chronic (2) Hyperlipidemia ICD Code: E78.5 Status: Chronic (3) Chronic kidney disease, stage 3 ICD Code: N18.3 Status: Chronic (4) COPD exacerbation ICD Code: J44.1 Status: Acute (5) CHF (congestive heart failure) ICD Code: I50.9 Status: Chronic (6) Elevated troponin ICD Code: R79.89 Status: Acute Assessment and Plan COPD exacerbation Chest x-ray showed no acute disease. CT pulmonary angiogram negative for pulmonary embolic disease; Peribronchial thickening and mild bronchiectasis predominantly in the lower lobes and multifocal mucoid plugging of subsegmental bronchi bilaterally characteristic of bronchitis. Appreciate pulmonology consult. - Levaquin IV. - Solu-Medrol Q6h. - Duonebs nebs scheduled and when necessary. - incentive spirometry. - sputum culture and gram stain. - Guaifenesin - Encourage ambulation with physical therapy. NSTEMI Troponin peaked at 0.49. EKG sinus rhythm with nonspecific ST and T-wave abnormality. Appreciate cardiology consult. - follow up with cardiology. - monitor on telemetry. CHF Does not appear to be with exacerbation. No notable edema. BNP 78. - Monitor for fluid overload. CKD Creatinine seems to fluctuate. - avoid nephrotoxins. HTN Elevated BP upon admission. Improved at this time. - Continue Norvasc, lisinopril, metoprolol. - Vasotec as needed. Hyperglycemia Likely s/t steroids. - ISS. - check HgbA1c. Constipation Reports incomplete BM. - Colace, Senokot. Miralax as needed. PPx: Lovenox. Discharge Planning Awaiting clinical improvement. Varun Kaufman DO Aug 18, 2016 09:37
[2016-08-18] MEDS ORDERED: POLYETHYLENE GLYCOL 17 GM PKG PO ONE (09:45)
[2016-08-18] MEDS ORDERED: INSULIN ASPART SUPPLEMENTAL SCALE SQ SCH (11:00)
[2016-08-18] MEDS: guaiFENesin E.R. 600 MG TAB PO SCH ×2 (11:28→20:53)
--- NOTE | 2016-08-18 11:44 | EKG ---
Date Performed: 08/17/2016 Time Performed: 15:11:48 PTAGE: 71 years EKG: Sinus rhythm POSSIBLE LEFT ATRIAL ENLARGEMENT NONSPECIFIC ST & T-WAVE ABNORMALITY BORDERLINE ECG PREVIOUS TRACING : 04/04/2016 11.11 DOCTOR: Pradip Sheppard Interpretating Date/Time 08/18/2016 11:42:33
[2016-08-18] MEDS: LEVOFLOXACIN 750 MG PREMIX INJ 150 ML IV SCH (14:23)
--- NOTE | 2016-08-18 14:56 | MB ---
cc: Rosana BENITEZ M.D. DATE OF CONSULTATION: 08/18/2016 HISTORY OF PRESENT ILLNESS Ms. Escobar is a 71-year-old white female known to me for a few years with severe COPD, oxygen dependent and a history of ischemic heart disease and heart failure. She has not felt well for a week or two but yesterday began to develop increasing shortness of breath, was unable to maintain adequate saturations, so came into the ER and was admitted. Dr. Duran saw her initially and I have known her so I am seeing her in followup. She is feeling much better. She has been seen by cardiology. She is followed regularly by Dr. Eng who feels that her cardiac status is stable and she is not in heart failure. Her initial chest x-ray revealed no evidence of heart failure and her BNP was low at 78. She has had no chest pain, no purulent sputum or hemoptysis, no increased edema. As they said this has been rather gradual in onset, there has been some cough with sputum but nothing purulent. She had a CTA in the emergency room which revealed no thromboembolic disease but she did have thickened bronchial vickers proximally suggesting she may have bronchitis. She was started on IV antibiotics, IV corticosteroids, aerosolized bronchodilators and continued on oxygen and is feeling much better today. Prior history is reviewed in Dr. Duran's consultation. MEDICATIONS Are reviewed in the EMR. ALLERGIES None. PHYSICAL EXAMINATION GENERAL: Today she is awake, alert, comfortable at rest. VITAL SIGNS: Her blood pressure is 140/70, her pulse is 80, respirations 18. She is afebrile and her sats are mid 90s on 3-4 liters of oxygen. NECK: Neck veins are flat. No adenopathy in the neck. CHEST: Reveals diffuse wheezing with some scattered congestion. CARDIAC: Regular rhythm. No harsh murmur. No pitting edema or cyanosis. LABORATORY DATA White count is 4800. ABG on 4 liters pO2 64, pH 7.4, pCO2 42. ASSESSMENT AND PLAN Ms. Escobar presents with what appears to be an acute exacerbation of COPD but without pneumonia or thromboembolism. Cardiology has reviewed her status and does not feel she is having ischemia or heart failure. I will drop her steroid dose back a bit, continue her nebulized aerosol treatments, but less frequently, try to get her moving and ambulating. She would probably benefit from cardiac rehab combined with pulmonary rehab in light of the lack of physical activity at home. Since her HI about a year ago she has become quite sedentary, she used to go to the gym and dance regularly as well and she has given all of that up. Once she is discharged we can have her followed up with cardiology as well and if they agree we will enroll her as an outpatient. Further diagnostic and/or therapeutic intervention will depend on her response and ongoing clinical course. R. MD CHANEL Das/NIKHIL /2:13 PM /2:34 PM
--- NOTE | 2016-08-18 16:00 | EC ---
Study Study Date:08/18/2016 STUDY CONCLUSIONS SUMMARY - Left ventricle: The cavity size was normal. Wall thickness was normal. Systolic function was normal. The estimated ejection fraction was in the range of 55% to 60%. Wall motion was normal; there were no regional wall motion abnormalities. - Pulmonary arteries: PA peak pressure: 32mm Hg (S). If LV function is below 40, please consider prescribing an ACEI or ARB or document rationale for non-use. PROCEDURE DATA STUDY STATUS: Elective. Procedure: Transthoracic echocardiography. Image quality was good. Scanning was performed from the parasternal, apical, and subcostal acoustic windows. Study completion: The patient tolerated the procedure well. Transthoracic echocardiography. M-mode, complete 2D, complete spectral Doppler, and color Doppler. Patient status: Inpatient. CARDIAC ANATOMY LEFT VENTRICLE: The cavity size was normal. Wall thickness was normal. Systolic function was normal. The estimated ejection fraction was in the range of 55% to 60%. Wall motion was normal; there were no regional wall motion abnormalities. AORTIC VALVE: Trileaflet; normal thickness leaflets. Doppler: Transvalvular velocity was within the normal range. There was no stenosis. No regurgitation. Mean gradient: 7mm Hg (S). Peak gradient: 17mm Hg (S). AORTA: Aortic root: The aortic root was normal in size. MITRAL VALVE: Structurally normal valve. Doppler: Transvalvular velocity was within the normal range. There was no evidence for stenosis. No regurgitation. Peak gradient: 2mm Hg (D). LEFT ATRIUM: The atrium was normal in size. RIGHT VENTRICLE: The cavity size was normal. Wall thickness was normal. PULMONIC VALVE: Doppler: Transvalvular velocity was within the normal range. There was no evidence for stenosis. No regurgitation. TRICUSPID VALVE: Structurally normal valve. Doppler: Transvalvular velocity was within the normal range. No regurgitation. PULMONARY ARTERY: The main pulmonary artery was normal-sized. Systolic pressure was within the normal range. RIGHT ATRIUM: The atrium was normal in size. PERICARDIUM: There was no pericardial effusion. SYSTEMIC VEINS: Inferior vena cava: The vessel was normal in size. BASIC MEASUREMENTS ADULT Normal Left ventricle LV internal dimension, ED, chordal level, *42.1 mm 43-52 PLAX LV internal dimension, ES, chordal level, 32.6 mm 23-38 PLAX Fractional shortening, chordal level, PLAX *23 % >29 LV posterior wall thickness, ED 8.82 mm IVS/LVPW ratio, ED 1.28 <1.3 Ventricular septum Septal thickness, ED 11.3 mm Aortic valve Leaflet separation 22 mm 15-26 Left atrium Anterior-posterior dimension 32 mm Right ventricle RV internal dimension, ED, PLAX 23.2 mm 19-38 BASIC MEASUREMENTS ADULT Normal Aortic valve Leaflet separation 22 mm 15-26 Aorta Root diameter, ED 28 mm 20-37 DOPPLER MEASUREMENTS ADULT Normal Main pulmonary artery Pressure, S *32 mm Hg =30 Aortic valve Peak velocity, S 208 cm/s Mean velocity, S 116 cm/s VTI, S 48.4 cm Mean gradient, S 7 mm Hg Peak gradient, S 17 mm Hg Mitral valve Peak E-wave velocity 71.1 cm/s Peak A-wave velocity 86.9 cm/s Peak gradient, D 2 mm Hg Peak E/A ratio 0.8 Tricuspid valve Regurgitant peak velocity 222 cm/s Peak RV-RA gradient, S 20 mm Hg Maximal regurgitant velocity 222 cm/s Systemic veins Estimated CVP 10 mm Hg Right ventricle RV pressure, S *32 mm Hg <30 LEGEND: Mean values are shown as u=mean value. Asterisk (*) andre values outside specified normal range. Prepared and signed by Rex Lee [id number]
[2016-08-18 16:19] LABS: HEMOGLOBIN A1b 1.9 %; HEMOGLOBIN Ao 83.2 %; HEMOGLOBIN LA1C 2.9 %; HEMOGLOBIN P3 4.4 %
[2016-08-18] MEDS: ENOXAPARIN SODIUM 40 MG/0.4 ML SYRINGE SQ SCH (16:38)
--- NOTE | 2016-08-18 16:51 | PD.CARD.PN ---
Subjective Subjective Remarks PT reports feeling better Objective Medications Current Medications Medications (Trade) Dose Ordered Sig/Jayden Route Start Time Stop Time Status Last Admin (Xanax) 0.5 mg HS PO 08/17/16 21:00 08/17/16 20:17 (Norvasc) 5 mg DAILY PO 08/18/16 09:00 08/18/16 09:22 (Lipitor) 40 mg HS PO 08/17/16 21:00 08/17/16 20:17 (Wellbutrin Sr) 150 mg DAILY PO 08/18/16 09:00 08/18/16 09:22 (Prinivil) 20 mg DAILY PO 08/18/16 09:00 08/18/16 09:22 (Toprol Xl) 25 mg HS PO 08/17/16 21:00 08/17/16 20:17 (Protonix) 20 mg DAILY PO 08/18/16 09:00 08/18/16 09:22 (Detrol La) 2 mg HS PO 08/17/16 21:00 08/17/16 20:29 (NS Flush) 2 ml UNSCH PRN FLUSH 08/17/16 18:30 08/18/16 11:27 (NS Flush) 2 ml BID FLUSH 08/17/16 21:00 08/18/16 09:21 (Tylenol) 650 mg Q4H PRN PO 08/17/16 18:30 (Zofran Inj) 4 mg Q6H PRN IVP 08/17/16 18:30 (Colace) 100 mg Q12HR PO 08/17/16 21:00 08/18/16 09:22 (Senokot) 17.2 mg DAILY PO 08/17/16 18:15 08/18/16 09:22 (Lovenox Inj) 40 mg Q24H SQ 08/18/16 17:30 08/18/16 16:38 (Tylenol) 650 mg Q6H PRN PO 08/17/16 18:30 (Roxicodone) 10 mg Q4H PRN PO 08/17/16 18:30 (Roxicodone) 5 mg Q4H PRN PO 08/17/16 18:30 Naloxone HCl 0.4 mg 0.4 mg UNSCH PRN IV 08/17/16 18:30 (Levaquin 750 Mg Premix Inj) 150 ml @ 100 mls/hr Q48H IV 08/18/16 16:00 08/18/16 14:23 (Vasotec Inj) 1.25 mg Q6H PRN IV PUSH 08/17/16 18:45 (Mucinex Er) 1,200 mg BID PO 08/18/16 09:30 08/18/16 11:28 (NovoLOG SUPPLEMENTAL SCALE) 1 BID@08,20 SQ 08/18/16 20:00 (SoluMEDROL INJ) 40 mg Q8HR IV PUSH 08/18/16 14:00 08/18/16 14:22 Vital Signs / I&O Vital Signs Date Time Temp Pulse Resp B/P Pulse Ox O2 Delivery O2 Flow Rate FiO2 08/18/16 16:11 Nasal Cannula 3.00 08/18/16 12:00 97.5 84 20 113/59 93 08/18/16 09:51 76 08/18/16 09:20 Nasal Cannula 4.00 Humidified 08/18/16 09:11 96 Nasal Cannula 3.00 08/18/16 08:00 98.3 77 20 119/57 92 08/18/16 04:00 97.9 77 18 120/58 95 08/18/16 04:00 Nasal Cannula 4.00 08/18/16 01:04 98.2 80 24 113/68 95 08/18/16 00:13 95 Nasal Cannula 4.00 08/18/16 00:00 Nasal Cannula 4.00 08/17/16 23:00 98.2 80 24 115/68 95 08/17/16 22:30 Nasal Cannula 4.00 08/17/16 22:30 80 08/17/16 22:30 97.9 78 18 105/60 95 08/17/16 22:10 80 16 150/65 95 Nasal Cannula 4 08/17/16 22:06 94 Nasal Cannula 4 08/17/16 20:53 94 Nasal Cannula 3.50 08/17/16 20:00 95 Nasal Cannula 3.50 08/17/16 17:23 87 22 160/72 95 Nasal Cannula 4 I/O 08/17/16 08/17/16 08/17/16 08/18/16 08/18/16 08/18/16 07:00 15:00 23:00 07:00 15:00 23:00 Intake Total 5 ml Output Total 300 ml Balance -300 ml 5 ml Intake IV Total 5 ml Output Urine Total 300 ml # Voids 1 Physical Exam GENERAL: Well developed, well nourished. No acute distress. HEENT: Jugular venous pressure is normal. CHEST: Lungs wheeze to auscultation bilaterally. Unlabored respiratory effort. CARDIAC: Regular rate and rhythm without S3, S4, or murmur. ABDOMEN: Soft, nontender, no hepatosplenomegaly. Bowel sounds present. EXTREMITIES: No clubbing, cyanosis, or edema. Laboratory Laboratory Tests Test 08/17/16 08/18/16 08/18/16 20:20 01:42 04:23 Troponin I 0.49 NG/ML 0.37 NG/ML White Blood Count 4.8 TH/MM3 Red Blood Count 4.46 MIL/MM3 Hemoglobin 13.3 GM/DL Hematocrit 39.6 % Mean Corpuscular Volume 88.9 FL Mean Corpuscular Hemoglobin 29.9 PG Mean Corpuscular Hemoglobin 33.6 % Concent Red Cell Distribution Width 13.4 % Platelet Count 209 TH/MM3 Mean Platelet Volume 8.9 FL Neutrophils (%) (Auto) 80.9 % Lymphocytes (%) (Auto) 15.9 % Monocytes (%) (Auto) 3.0 % Eosinophils (%) (Auto) 0.0 % Basophils (%) (Auto) 0.2 % Neutrophils # (Auto) 3.9 TH/MM3 Lymphocytes # (Auto) 0.8 TH/MM3 Monocytes # (Auto) 0.1 TH/MM3 Eosinophils # (Auto) 0.0 TH/MM3 Basophils # (Auto) 0.0 TH/MM3 CBC Comment DIFF FINAL Differential Comment Sodium Level 138 MEQ/L Potassium Level 4.1 MEQ/L Chloride Level 103 MEQ/L Carbon Dioxide Level 24.8 MEQ/L Anion Gap 10 MEQ/L Blood Urea Nitrogen 28 MG/DL Creatinine 1.40 MG/DL Estimat Glomerular Filtration 37 ML/MIN Rate Random Glucose 196 MG/DL Calcium Level 9.3 MG/DL Total Bilirubin 0.3 MG/DL Aspartate Amino Transf 13 U/L (AST/SGOT) Alanine Aminotransferase 20 U/L (ALT/SGPT) Alkaline Phosphatase 75 U/L Total Protein 6.9 GM/DL Albumin 3.5 GM/DL Assessment and Plan Assessment and Plan Non-ST elevation myocardial infarction - secondary myocardial infarction as she was quite hypoxic EF normal by ECHO, no further work up COPD - this is being managed by the primary team. [facility]- resolved Available Tiffanie Webber MD Aug 18, 2016 16:50
[2016-08-18] MEDS: INSULIN ASPART SUPPLEMENTAL SCALE SQ SCH (20:00)
[2016-08-18] MEDS: ALPRAZolam 0.5 MG TAB PO SCH (20:53)
[2016-08-18] MEDS: ATORVASTATIN 40 MG TAB PO SCH (20:53)
[2016-08-18] MEDS: METOPROLOL SUCCINATE 25 MG EXTENDED RELEASE TAB PO SCH (20:53)
[2016-08-18] MEDS: TOLTERODINE TARTRATE 2 MG CAP LA PO SCH (20:54)
[2016-08-19] VITALS (9 sets, daily range): BP systolic 101–129; BP diastolic 55–77; PULSE 70–83; RESP 17–22; TEMP 97.1–97.9; O2SAT 91–98
[2016-08-19] MEDS: methylPREDNISolone SOD SUCC 40 MG/1 ML VIAL IV PUSH SCH (05:51)
[2016-08-19] MEDS: RESP: ALBUTEROL 2.5 MG/IPRATROPIUM 0.5 MG NEB (PRN) NEB (06:13)
[2016-08-19] MEDS: INSULIN ASPART SUPPLEMENTAL SCALE SQ SCH ×2 (08:00→20:00)
[2016-08-19] MEDS: RESP: ALBUTEROL 2.5 MG/IPRATROPIUM 0.5 MG NEB (SCH) NEB ×4 (08:01→20:33)
[2016-08-19] MEDS: SODIUM CHLORIDE 0.9% FLUSH 5 ML FLUSH FLUSH SCH ×2 (09:00→20:25)
[2016-08-19] MEDS: DOCUSATE SODIUM 100 MG CAP PO SCH ×2 (09:04→20:25)
[2016-08-19] MEDS: SENNOSIDES 8.6 MG TAB PO SCH (09:04)
[2016-08-19] MEDS: PANTOPRAZOLE SOD 20 MG DELAYED RELEASE TAB PO SCH (09:04)
[2016-08-19] MEDS: guaiFENesin E.R. 600 MG TAB PO SCH ×2 (09:04→20:24)
[2016-08-19] MEDS: amLODIPine BESYLATE 5 MG TAB PO SCH (09:04)
[2016-08-19] MEDS: buPROPion HCL 150 MG SUSTAINED RELEASE TAB PO SCH (09:04)
[2016-08-19] MEDS: LISINOPRIL 20 MG TAB PO SCH (09:05)
[2016-08-19 09:08] LABS: BICARBONATE 28.6 MEQ/L (21.0-32.0); MAGNESIUM 2.4 MG/DL (1.5-2.5); POTASSIUM 4.2 MEQ/L (3.5-5.1)
--- NOTE | 2016-08-19 09:10 | HHI.PR ---
Subjective Remarks The patient was resting comfortably in bed. She said that she felt her breathing was better. She had questions about pulmonary rehabilitation. She said she still lives with her brother who smokes. The patient has been ambulating without difficulty. Discussed with nursing. Objective Vitals Vital Signs Date Time Temp Pulse Resp B/P Pulse Ox O2 Delivery O2 Flow Rate FiO2 08/19/16 08:01 98 Nasal Cannula 3.00 08/19/16 08:00 97.1 71 20 111/59 95 08/19/16 06:14 91 Nasal Cannula 3.00 08/19/16 04:00 97.5 75 17 101/56 97 08/19/16 00:00 97.7 81 18 112/77 94 08/18/16 20:00 85 08/18/16 20:00 Nasal Cannula 3.00 Humidified 08/18/16 20:00 97.5 85 18 116/57 95 08/18/16 19:31 97 Nasal Cannula 3.00 08/18/16 16:11 Nasal Cannula 3.00 08/18/16 16:00 97.7 78 20 122/59 94 08/18/16 12:00 97.5 84 20 113/59 93 08/18/16 09:51 76 08/18/16 09:20 Nasal Cannula 4.00 Humidified 08/18/16 09:11 96 Nasal Cannula 3.00 I/O 08/18/16 08/18/16 08/18/16 08/19/16 08/19/16 08/19/16 07:00 15:00 23:00 07:00 15:00 23:00 Intake Total 725 ml 240 ml 240 ml Balance 725 ml 240 ml 240 ml Intake Oral 720 ml 240 ml 240 ml IV Total 5 ml # Voids 3 3 2 # Bowel Movements 0 Result Diagram: 08/18/16 0423 08/18/16 [address] Angiography 08/17/16 1714 Signed Impressions: Service Date/Time: Wednesday, August 17, 2016 17:36 - CONCLUSION: 1. Negative for pulmonary embolic disease. 2. Peribronchial thickening and mild bronchiectasis predominantly in the lower lobes with multifocal mucoid plugging of subsegmental bronchi bilaterally characteristic of bronchitis. Robert Uriostegui MD Chest X-Ray 08/17/16 1510 Signed Impressions: Service Date/Time: Wednesday, August 17, 2016 15:31 - CONCLUSION: No acute disease. No significant change has occurred. Jose C Duval MD Objective Remarks GENERAL: This is a well-nourished, well-developed patient, in NAD. SKIN: No rashes, ecchymoses or lesions. Cool and dry. HEAD: Atraumatic. Normocephalic. No temporal or scalp tenderness. EYES: Pupils equal round and reactive. Extraocular motions intact. No scleral icterus. No injection or drainage. ENT: Nose without bleeding, purulent drainage or septal hematoma. Throat without erythema, tonsillar hypertrophy or exudate. Uvula midline. Airway patent. NECK: Trachea midline. No JVD or lymphadenopathy. Supple, nontender, no meningeal signs. CARDIOVASCULAR: Regular rate and rhythm without murmurs, gallops, or rubs. RESPIRATORY:Diffuse rhonchi bilaterally, diffuse wheezes. Poor to fair air exchange. GASTROINTESTINAL: Abdomen soft, non-tender, nondistended. Bowel sounds hypoactive 4. MUSCULOSKELETAL: Extremities without clubbing, cyanosis, or edema. No joint tenderness, effusion, or edema noted. NEUROLOGICAL: Awake and alert. Motor and sensory grossly within normal limits. Five out of 5 muscle strength in all muscle groups. Normal speech. PSYCH: Mood and affect appropriate. Medications and IVs Current Medications Medications (Trade) Dose Ordered Sig/Jayden Route Start Time Stop Time Status Last Admin (Xanax) 0.5 mg HS PO 08/17/16 21:00 08/18/16 20:53 (Norvasc) 5 mg DAILY PO 08/18/16 09:00 08/18/16 09:22 (Lipitor) 40 mg HS PO 08/17/16 21:00 08/18/16 20:53 (Wellbutrin Sr) 150 mg DAILY PO 08/18/16 09:00 08/18/16 09:22 (Prinivil) 20 mg DAILY PO 08/18/16 09:00 08/18/16 09:22 (Toprol Xl) 25 mg HS PO 08/17/16 21:00 08/18/16 20:53 (Protonix) 20 mg DAILY PO 08/18/16 09:00 08/18/16 09:22 (Detrol La) 2 mg HS PO 08/17/16 21:00 08/18/16 20:54 (NS Flush) 2 ml UNSCH PRN FLUSH 08/17/16 18:30 08/18/16 11:27 (NS Flush) 2 ml BID FLUSH 08/17/16 21:00 08/18/16 20:54 (Tylenol) 650 mg Q4H PRN PO 08/17/16 18:30 (Zofran Inj) 4 mg Q6H PRN IVP 08/17/16 18:30 (Colace) 100 mg Q12HR PO 08/17/16 21:00 08/18/16 20:53 (Senokot) 17.2 mg DAILY PO 08/17/16 18:15 08/18/16 09:22 (Lovenox Inj) 40 mg Q24H SQ 08/18/16 17:30 08/18/16 16:38 (Tylenol) 650 mg Q6H PRN PO 08/17/16 18:30 (Roxicodone) 10 mg Q4H PRN PO 08/17/16 18:30 (Roxicodone) 5 mg Q4H PRN PO 08/17/16 18:30 Naloxone HCl 0.4 mg 0.4 mg UNSCH PRN IV 08/17/16 18:30 (Levaquin 750 Mg Premix Inj) 150 ml @ 100 mls/hr Q48H IV 08/18/16 16:00 08/18/16 14:23 (Vasotec Inj) 1.25 mg Q6H PRN IV PUSH 08/17/16 18:45 (Mucinex Er) 1,200 mg BID PO 08/18/16 09:30 08/18/16 20:53 (NovoLOG SUPPLEMENTAL SCALE) 1 BID@08,20 SQ 08/18/16 20:00 (SoluMEDROL INJ) 40 mg Q8HR IV PUSH 08/18/16 14:00 08/19/16 05:51 A/P Problem List: (1) Hypertension ICD Code: I10 Status: Chronic (2) Hyperlipidemia ICD Code: E78.5 Status: Chronic (3) Chronic kidney disease, stage 3 ICD Code: N18.3 Status: Chronic (4) COPD exacerbation ICD Code: J44.1 Status: Acute (5) CHF (congestive heart failure) ICD Code: I50.9 Status: Chronic (6) Elevated troponin ICD Code: R79.89 Status: Acute Assessment and Plan COPD exacerbation Chest x-ray showed no acute disease. CT pulmonary angiogram negative for pulmonary embolic disease; Peribronchial thickening and mild bronchiectasis predominantly in the lower lobes and multifocal mucoid plugging of subsegmental bronchi bilaterally characteristic of bronchitis. Appreciate pulmonology consult. - Levaquin IV, renally dosed at q 48 hours. - Solu-Medrol Q8h. - Duonebs nebs scheduled and when necessary. - incentive spirometry. - sputum culture and gram stain. - Guaifenesin. - Encourage ambulation with physical therapy. - pulmonary rehab upon discharge. NSTEMI Troponin peaked at 0.49. EKG sinus rhythm with nonspecific ST and T-wave abnormality. Appreciate cardiology consult. Echo with normal EF. - follow up with cardiology as an outpt. - monitor on telemetry. CHF Does not appear to be with exacerbation. No notable edema. BNP 78. - Monitor for fluid overload. CKD Creatinine seems to fluctuate. - avoid nephrotoxins. HTN Elevated BP upon admission. Improved at this time. - Continue Norvasc, lisinopril, metoprolol. - Vasotec as needed. Hyperglycemia Likely s/t steroids. A1c not elevated. - ISS. - wean steroids as tolerated. Constipation Reports incomplete BM. - Colace, Senokot. Miralax and lactulose added. PPx: Lovenox. Discharge Planning Awaiting clinical improvement. Varun Kaufman DO Aug 19, 2016 09:10
[2016-08-19] MEDS ORDERED: BISACODYL 10 MG SUPP RECTAL ONE (09:15)
[2016-08-19] MEDS ORDERED: BISACODYL EC 5 MG TABEC PO ONE (09:15)
[2016-08-19] MEDS: POLYETHYLENE GLYCOL 17 GM PKG PO SCH (09:26)
[2016-08-19] MEDS ORDERED: BISACODYL 10 MG SUPP RECTAL PRN (12:15)
[2016-08-19] MEDS: ENOXAPARIN SODIUM 40 MG/0.4 ML SYRINGE SQ SCH (17:23)
[2016-08-19] MEDS: METOPROLOL SUCCINATE 25 MG EXTENDED RELEASE TAB PO SCH (20:24)
[2016-08-19] MEDS: predniSONE 20 MG TAB PO SCH (20:24)
[2016-08-19] MEDS: ALPRAZolam 0.5 MG TAB PO SCH (20:24)
[2016-08-19] MEDS: TOLTERODINE TARTRATE 2 MG CAP LA PO SCH (20:25)
[2016-08-19] MEDS: ATORVASTATIN 40 MG TAB PO SCH (20:25)
[2016-08-20] VITALS (8 sets, daily range): BP systolic 104–133; BP diastolic 52–64; PULSE 64–79; RESP 12–22; TEMP 97.2–98.1; O2SAT 92–98
[2016-08-20] MEDS: RESP: ALBUTEROL 2.5 MG/IPRATROPIUM 0.5 MG NEB (SCH) NEB ×4 (07:30→20:12)
[2016-08-20] MEDS: buPROPion HCL 150 MG SUSTAINED RELEASE TAB PO SCH (11:23)
[2016-08-20] MEDS: guaiFENesin E.R. 600 MG TAB PO SCH ×2 (11:23→20:33)
[2016-08-20] MEDS: LISINOPRIL 20 MG TAB PO SCH (11:23)
[2016-08-20] MEDS: amLODIPine BESYLATE 5 MG TAB PO SCH (11:23)
[2016-08-20] MEDS: predniSONE 20 MG TAB PO SCH ×2 (11:23→20:32)
[2016-08-20] MEDS: POLYETHYLENE GLYCOL 17 GM PKG PO SCH (11:24)
[2016-08-20] MEDS: SODIUM CHLORIDE 0.9% FLUSH 5 ML FLUSH FLUSH SCH ×2 (11:24→20:33)
[2016-08-20] MEDS: DOCUSATE SODIUM 100 MG CAP PO SCH ×2 (11:24→20:32)
[2016-08-20] MEDS: PANTOPRAZOLE SOD 20 MG DELAYED RELEASE TAB PO SCH (11:24)
[2016-08-20] MEDS: SENNOSIDES 8.6 MG TAB PO SCH (11:24)
[2016-08-20] MEDS: INSULIN ASPART SUPPLEMENTAL SCALE SQ SCH ×2 (11:25→20:00)
--- NOTE | 2016-08-20 13:39 | HHI.PR ---
Subjective Remarks The patient was feeling tired. Otherwise she felt improved. She says she still has congestion but has not been able to cough anything up. She has been ambulating without difficulty. Discussed with Dr. Pandey. Objective Vitals Vital Signs Date Time Temp Pulse Resp B/P Pulse Ox O2 Delivery O2 Flow Rate FiO2 08/20/16 08:00 72 08/20/16 08:00 97.2 66 22 104/56 95 08/20/16 07:30 94 Nasal Cannula 3.00 08/20/16 07:00 Nasal Cannula 3.00 Humidified 08/20/16 04:00 97.2 64 17 111/57 94 08/20/16 00:00 98.0 69 18 106/52 94 08/19/16 20:00 97.8 83 18 124/67 94 08/19/16 20:00 75 08/19/16 20:00 Nasal Cannula 3.00 Humidified 08/19/16 16:00 97.8 77 22 129/64 93 I/O 08/19/16 08/19/16 08/19/16 08/20/16 08/20/16 08/20/16 07:00 15:00 23:00 07:00 15:00 23:00 Intake Total 240 ml 960 ml 480 ml 240 ml Output Total 475 ml Balance 240 ml 485 ml 480 ml 240 ml Intake Oral 240 ml 960 ml 480 ml 240 ml Output Urine Total 475 ml # Voids 2 1 2 # Bowel Movements 0 1 0 Result Diagram: 08/18/16 0423 08/19/[address] Angiography 08/17/16 1714 Signed Impressions: Service Date/Time: Wednesday, August 17, 2016 17:36 - CONCLUSION: 1. Negative for pulmonary embolic disease. 2. Peribronchial thickening and mild bronchiectasis predominantly in the lower lobes with multifocal mucoid plugging of subsegmental bronchi bilaterally characteristic of bronchitis. Robert Uriostegui MD Chest X-Ray 08/17/16 1510 Signed Impressions: Service Date/Time: Wednesday, August 17, 2016 15:31 - CONCLUSION: No acute disease. No significant change has occurred. Jose C Duval MD Objective Remarks GENERAL: This is a well-nourished, well-developed patient, in NAD. SKIN: No rashes, ecchymoses or lesions. Cool and dry. HEAD: Atraumatic. Normocephalic. No temporal or scalp tenderness. EYES: Pupils equal round and reactive. Extraocular motions intact. No scleral icterus. No injection or drainage. ENT: Nose without bleeding, purulent drainage or septal hematoma. Throat without erythema, tonsillar hypertrophy or exudate. Uvula midline. Airway patent. NECK: Trachea midline. No JVD or lymphadenopathy. Supple, nontender, no meningeal signs. CARDIOVASCULAR: Regular rate and rhythm without murmurs, gallops, or rubs. RESPIRATORY:Diffuse rhonchi bilaterally, diffuse wheezes. Poor to fair air exchange. GASTROINTESTINAL: Abdomen soft, non-tender, nondistended. Bowel sounds hypoactive 4. MUSCULOSKELETAL: Extremities without clubbing, cyanosis, or edema. No joint tenderness, effusion, or edema noted. NEUROLOGICAL: Awake and alert. Motor and sensory grossly within normal limits. Five out of 5 muscle strength in all muscle groups. Normal speech. PSYCH: Mood and affect appropriate. Procedures None. Medications and IVs Current Medications Medications (Trade) Dose Ordered Sig/Jayden Route Start Time Stop Time Status Last Admin (Xanax) 0.5 mg HS PO 08/17/16 21:00 08/19/16 20:24 (Norvasc) 5 mg DAILY PO 08/18/16 09:00 08/20/16 11:23 (Lipitor) 40 mg HS PO 08/17/16 21:00 08/19/16 20:25 (Wellbutrin Sr) 150 mg DAILY PO 08/18/16 09:00 08/20/16 11:23 (Prinivil) 20 mg DAILY PO 08/18/16 09:00 08/20/16 11:23 (Toprol Xl) 25 mg HS PO 08/17/16 21:00 08/19/16 20:24 (Protonix) 20 mg DAILY PO 08/18/16 09:00 08/20/16 11:24 (Detrol La) 2 mg HS PO 08/17/16 21:00 08/19/16 20:25 (NS Flush) 2 ml UNSCH PRN FLUSH 08/17/16 18:30 08/18/16 11:27 (NS Flush) 2 ml BID FLUSH 08/17/16 21:00 08/20/16 11:24 (Tylenol) 650 mg Q4H PRN PO 08/17/16 18:30 (Zofran Inj) 4 mg Q6H PRN IVP 08/17/16 18:30 (Colace) 100 mg Q12HR PO 08/17/16 21:00 08/20/16 11:24 (Senokot) 17.2 mg DAILY PO 08/17/16 18:15 08/20/16 11:24 (Lovenox Inj) 40 mg Q24H SQ 08/18/16 17:30 08/19/16 17:23 (Tylenol) 650 mg Q6H PRN PO 08/17/16 18:30 (Roxicodone) 10 mg Q4H PRN PO 08/17/16 18:30 (Roxicodone) 5 mg Q4H PRN PO 08/17/16 18:30 Naloxone HCl 0.4 mg 0.4 mg UNSCH PRN IV 08/17/16 18:30 (Levaquin 750 Mg Premix Inj) 150 ml @ 100 mls/hr Q48H IV 08/18/16 16:00 08/18/16 14:23 (Vasotec Inj) 1.25 mg Q6H PRN IV PUSH 08/17/16 18:45 (Mucinex Er) 1,200 mg BID PO 08/18/16 09:30 08/20/16 11:23 (NovoLOG SUPPLEMENTAL SCALE) 1 BID@08,20 SQ 08/18/16 20:00 08/20/16 11:25 (Miralax) 17 gm DAILY PO 08/19/16 09:15 08/20/16 11:24 (Deltasone) 20 mg BID PO 08/19/16 21:00 08/20/16 11:23 A/P Problem List: (1) Hypertension ICD Code: I10 Status: Chronic (2) Hyperlipidemia ICD Code: E78.5 Status: Chronic (3) Chronic kidney disease, stage 3 ICD Code: N18.3 Status: Chronic (4) COPD exacerbation ICD Code: J44.1 Status: Acute (5) CHF (congestive heart failure) ICD Code: I50.9 Status: Chronic (6) Elevated troponin ICD Code: R79.89 Status: Acute Assessment and Plan COPD exacerbation Chest x-ray showed no acute disease. CT pulmonary angiogram negative for pulmonary embolic disease; Peribronchial thickening and mild bronchiectasis predominantly in the lower lobes and multifocal mucoid plugging of subsegmental bronchi bilaterally characteristic of bronchitis. Appreciate pulmonology consult. - Levaquin IV, renally dosed at q 48 hours. - Solu-Medrol changed to prednisone 08/19. - Duonebs nebs scheduled and when necessary. - incentive spirometry. - sputum culture and gram stain requested. - Guaifenesin. - Encourage ambulation with physical therapy. - pulmonary rehab upon discharge. NSTEMI Troponin peaked at 0.49. EKG sinus rhythm with nonspecific ST and T-wave abnormality. Appreciate cardiology consult. Echo with normal EF. - follow up with cardiology as an outpt. - monitor on telemetry. CHF Does not appear to be with exacerbation. No notable edema. BNP 78. - Monitor for fluid overload. CKD Creatinine seems to fluctuate. - avoid nephrotoxins. HTN Elevated BP upon admission. Well controlled 08/20. - Continue Norvasc, lisinopril, metoprolol. - Vasotec as needed. Hyperglycemia Likely s/t steroids. A1c not elevated. - ISS. - wean steroids as tolerated. Constipation Reports incomplete BM. Resolved 08/20. - Colace, Senokot. Miralax and lactulose added. PPx: Lovenox. Discharge Planning Awaiting clinical improvement. Anticipate d/c home in 1-2 days. Varun Kaufman DO Aug 20, 2016 13:39
[2016-08-20] MEDS: ENOXAPARIN SODIUM 40 MG/0.4 ML SYRINGE SQ SCH (16:31)
[2016-08-20] MEDS: LEVOFLOXACIN 750 MG PREMIX INJ 150 ML IV SCH (16:32)
[2016-08-20] MEDS: METOPROLOL SUCCINATE 25 MG EXTENDED RELEASE TAB PO SCH (20:32)
[2016-08-20] MEDS: ATORVASTATIN 40 MG TAB PO SCH (20:32)
[2016-08-20] MEDS: ALPRAZolam 0.5 MG TAB PO SCH (20:32)
[2016-08-20] MEDS: TOLTERODINE TARTRATE 2 MG CAP LA PO SCH (22:54)
[2016-08-21 00:05] VITALS: BP 120/56; PULSE 62; RESP 16; TEMP 98.2; O2SAT 93
[2016-08-21 04:00] VITALS: BP 135/65; PULSE 66; RESP 16; TEMP 98.1; O2SAT 95
[2016-08-21 07:55] VITALS: BP 136/67; PULSE 64; RESP 20; TEMP 98; O2SAT 95
[2016-08-21] MEDS: RESP: ALBUTEROL 2.5 MG/IPRATROPIUM 0.5 MG NEB (SCH) NEB ×2 (08:34→12:38)
[2016-08-21 08:36] VITALS: O2SAT 94
[2016-08-21] MEDS: DOCUSATE SODIUM 100 MG CAP PO SCH (10:04)
[2016-08-21] MEDS: POLYETHYLENE GLYCOL 17 GM PKG PO SCH (10:04)
[2016-08-21] MEDS: guaiFENesin E.R. 600 MG TAB PO SCH (10:04)
[2016-08-21] MEDS: predniSONE 20 MG TAB PO SCH (10:04)
[2016-08-21] MEDS: buPROPion HCL 150 MG SUSTAINED RELEASE TAB PO SCH (10:05)
[2016-08-21] MEDS: amLODIPine BESYLATE 5 MG TAB PO SCH (10:05)
[2016-08-21] MEDS: LISINOPRIL 20 MG TAB PO SCH (10:05)
[2016-08-21] MEDS: PANTOPRAZOLE SOD 20 MG DELAYED RELEASE TAB PO SCH (10:05)
[2016-08-21] MEDS: SENNOSIDES 8.6 MG TAB PO SCH (10:05)
[2016-08-21] MEDS: SODIUM CHLORIDE 0.9% FLUSH 5 ML FLUSH FLUSH SCH (10:10)
[2016-08-21] MEDS: INSULIN ASPART SUPPLEMENTAL SCALE SQ SCH (10:11)
[2016-08-21] MEDS ORDERED: LEVA750T PO (11:37)
[2016-08-21] MEDS ORDERED: PRED20 PO ×2 (11:37)
[2016-08-21] MEDS ORDERED: MUCI600T PO (11:37)
--- NOTE | 2016-08-21 11:38 | HHI.DCPOC ---
Discharge Care Plan Diagnosis: (1) NSTEMI (non-ST elevated myocardial infarction) (2) Chronic kidney disease, stage 3 (3) COPD exacerbation (4) Hypertension Goals to Promote Your Health * To prevent worsening of your condition and complications * To maintain your health at the optimal level Directions to Meet Your Goals Take your medications as prescribed Follow your dietary instruction Follow activity as directed Keep your appointments as scheduled Take your immunizations and boosters as scheduled If your symptoms worsen call your PCP, if no PCP go to Urgent Care Center or Emergency Room Smoking is Dangerous to Your Health. Avoid second hand smoke Call the 24-hour hour crisis hotline for domestic abuse at Varun Kaufman DO Aug 21, 2016 11:38
--- NOTE | 2016-08-21 11:44 | HHI.DS ---
Discharge Summary Admission Date Aug 17, 2016 at 17:37 Discharge Date: Aug 21, 2016 Admitting Diagnosis NSTEMI, COPD (1) Hypertension ICD Code: I10 (2) Hyperlipidemia ICD Code: E78.5 (3) Chronic kidney disease, stage 3 ICD Code: N18.3 (4) COPD exacerbation ICD Code: J44.1 Diagnosis: Principal (5) CHF (congestive heart failure) ICD Code: I50.9 (6) Elevated troponin ICD Code: R79.89 Procedures None. Brief History - From Admission Patient is a 71-year-old with primary medical history of COPD, CHF HTN who came into the hospital with complaints of worsening shortness of breath and dyspnea. States that she is on home O2 on 2 L nasal cannula however, last night even with oxygen at 3-4L she is unable to walk a few steps in her house. She was doing her nebulization and other inhalers at home minimal relief. States she feels hot, checked her temperature but it wasn't 98.9. Feeling "sik and achy. "She tried to contact her hearing instrument specialist Dr. Pandey unable to get hold of him, that she decided to go to the ED. States that she feels congested unable to move air, she has a little bit of mucus to expectorate. Patient quit smoking a urinary half ago. Diagnosed with COPD. Last hospital admission was last year in May, states she was intubated for about 24 hours, was discharged home with steroids. She was following with Dr. pandey last follow-up was June 2016. She also sees metallurgist process, Dr. Eng. Chest x-ray showed no acute disease. No significant change has occurred. CT pulmonary angiogram showed negative for pulmonary embolic disease. Peribronchial thickening and mild bronchiectasis predominantly in the lower lobes and multifocal mucoid plugging of subsegmental bronchi bilaterally characteristic of bronchitis. No leukocytosis noted, CBC unremarkable except for slightly elevated monocyte at 11.9. ABG with O2 sat at 89, history of COPD. BNP 78. DEPUTY K 9 1.07 with EGFR of 51, history of chronic kidney disease. Troponin slightly elevated at 0.38. Patient was given Levaquin IV, duonebs, Solu-Medrol in the ED. Patient states after doing nebs and Solu-Medrol she had some relief improving SOB/dyspnea. Complaints of being dehydrated and having dry mouth. Otherwise, denies chest pain, headache, dizziness, palpitations, chills, diaphoresis, n/v/d. CBC/BMP: 08/18/16 0423 08/19/16 0714 Significant Findings Laboratory Tests Test 08/19/16 07:14 Blood Urea Nitrogen 37 MG/DL (7-18) Creatinine 1.36 MG/DL (0.50-1.00) Estimat Glomerular Filtration 39 ML/MIN (>89) Rate Random Glucose 151 MG/DL (74-106) Imaging Last Impressions CT Angiography 08/17/16 1714 Signed Impressions: Service Date/Time: Wednesday, August 17, 2016 17:36 - CONCLUSION: 1. Negative for pulmonary embolic disease. 2. Peribronchial thickening and mild bronchiectasis predominantly in the lower lobes with multifocal mucoid plugging of subsegmental bronchi bilaterally characteristic of bronchitis. Robert Uriostegui MD Chest X-Ray 08/17/16 1510 Signed Impressions: Service Date/Time: Wednesday, August 17, 2016 15:31 - CONCLUSION: No acute disease. No significant change has occurred. Jose C Duval MD PE at Discharge GENERAL: This is a well-nourished, well-developed patient, in NAD. SKIN: No rashes, ecchymoses or lesions. Cool and dry. HEAD: Atraumatic. Normocephalic. No temporal or scalp tenderness. EYES: Pupils equal round and reactive. Extraocular motions intact. No scleral icterus. No injection or drainage. ENT: Nose without bleeding, purulent drainage or septal hematoma. Throat without erythema, tonsillar hypertrophy or exudate. Uvula midline. Airway patent. NECK: Trachea midline. No JVD or lymphadenopathy. Supple, nontender, no meningeal signs. CARDIOVASCULAR: Regular rate and rhythm without murmurs, gallops, or rubs. RESPIRATORY: Improved bilateral wheezing and rhonchi. GASTROINTESTINAL: Abdomen soft, non-tender, nondistended. Bowel sounds hypoactive 4. MUSCULOSKELETAL: Extremities without clubbing, cyanosis, or edema. No joint tenderness, effusion, or edema noted. NEUROLOGICAL: Awake and alert. Motor and sensory grossly within normal limits. Five out of 5 muscle strength in all muscle groups. Normal speech. PSYCH: Mood and affect appropriate. Pt update on day of discharge The patient feels better this morning. She says that she coughed up a little bit of mucus. She has been ambulating well. She has been having bowel movements. She would like to go home. Hospital Course COPD exacerbation Chest x-ray showed no acute disease. CT pulmonary angiogram negative for pulmonary embolic disease; Peribronchial thickening and mild bronchiectasis predominantly in the lower lobes and multifocal mucoid plugging of subsegmental bronchi bilaterally characteristic of bronchitis. Pulmonology was consulted. She received Levaquin IV, renally dosed at q 48 hours. She was initially on Solu -Medrol which was changed to prednisone. She received Duonebs nebs scheduled and when necessary. She received incentive spirometry. She was placed on Guaifenesin. We encouraged ambulation with physical therapy. She will complete a prednisone taper. She will continue her home inhaler regimen. She will follow up with her hearing instrument specialist and will be referred to pulmonary rehab upon discharge. NSTEMI Troponin peaked at 0.49. EKG sinus rhythm with nonspecific ST and T-wave abnormality. Cardiology was consulted. Echo with normal EF. She will follow up with cardiology as an outpt. She was monitored on telemetry. HTN Elevated BP upon admission. Controlled on her regimen of Norvasc, lisinopril and metoprolol. She received Vasotec as needed. Hyperglycemia A1c was not elevated. She was placed on an ISS. She will continue to wean off of steroids. Pt Condition on Discharge: Fair Discharge Disposition: Discharge Home Discharge Time: <= 30 minutes Discharge Instructions DIET: Follow Instructions for: Heart Healthy Diet Activities you can perform: Weight Bearing as [place] Follow up Referrals: Cardiology - [address] Eng PCP Follow-up - 1 Week Pulmonology - 1 Week with Rosana Pandey MD New Orders: Pulmonary Rehab - 3-5 Days New Medications: Levofloxacin (Levaquin) 750 Mg Tab 750 MG PO Q48H Take first dose 08/22/16. Infection #2 Ref 0 TAB Prednisone (Prednisone) 20 Mg Tab 20 MG PO DAILY Start after completing twice daily dosing schedule. COPD #5 Ref 0 TAB Guaifenesin ER 12 HR (Mucinex ER 12 HR) 600 Mg Loren 1200 MG PO BID congestion #14 TAB Prednisone (Prednisone) 20 Mg Tab 20 MG PO BID COPD #10 TAB Continued Medications: Alprazolam (Alprazolam) 0.5 Mg Tab 0.5 MG PO HS ANXIETY Ref 0 TAB Amlodipine (Amlodipine) 5 Mg Tab 5 MG PO DAILY Blood Pressure Management #30 Ref 0 TAB Atorvastatin (Atorvastatin) 40 Mg Tab 40 MG PO HS Cholesterol Management #30 Ref 0 TAB Bupropion HCl ER 12 HR (Wellbutrin SR 12 HR) 150 Mg Tab 150 MG PO DAILY Control Depression Ref 0 TAB Calcium Carbonate-Cholecalciferol (Calcium 500 +D3) 500-600 Mg-Unit Tab 2 TAB PO DAILY TAB Fluticasone-Salmeterol Inh (Advair Diskus Inh) 500-50 Mcg/Blist Aer 1 PUFF INH BID Rinse mouth after use. #1 Ref 0 INHALER Furosemide (Lasix) 20 Mg Tab 20 MG PO DAILY PRN EDEMA #30 Ref 0 TAB Ipratropium-Albuterol Neb (Duoneb) 0.5-2.5 Mg/3 Ml Neb 1 NEBULE INH Q4HR NEB PRN SHORTNESS OF BREATH #180 Ref 0 NEBULE Lisinopril (Lisinopril) 20 Mg Tab 20 MG PO DAILY #30 Ref 0 TAB Metoprolol Succinate ER 24 HR (Toprol XL) 25 Mg Tab 25 MG PO HS #30 Ref 0 TAB Omeprazole (Omeprazole) 20 Mg Tab 20 MG PO DAILY #30 Ref 0 TAB Oxybutynin ER 24 HR (Oxybutynin ER 24 HR) 5 Mg Tab 5 MG PO HS Overactive Bladder Ref 0 TAB Tiotropium Inh (Spiriva Handihaler) 18 Mcg Cap 18 MCG INH DAILY 1 capsule = 18 mcg COPD #30 Ref 0 CAP Varun Kaufman DO Aug 21, 2016 11:44
--- NOTE | 2016-08-21 20:11 | MD ---
cc: Rosana BENITEZ M.D. ADMISSION DATE: 08/17/2016 DISCHARGE DATE: 08/21/2016 HISTORY Ms. Escobar is a 71-year-old white female with severe COPD oxygen- dependent and also has a history of ischemic heart disease. She presented on this occasion with intermittent chest discomfort and dyspnea and was found to have a non-S-T segment ischemic event. It resulted in an exacerbation of her COPD. HOSPITAL COURSE: She was seen by Dr. Eng for cardiology who felt she was stable and could be treated medically. She was cleared for discharge. Her pulmonary status was stable on aerosolized bronchodilators and corticosteroids. She also received antibiotics. She had a CT angiogram on August 17, which revealed no evidence of pulmonary embolism although she did have some peribronchial thickening particularly at the bases, possibly some mild infection. No sputum could be collected. Her white counts were normal. Arterial blood gas on August 17 on 4 liters: pO2 was 64, pH 7.4, pCO2 was 41 and she is on oxygen at home. Her exam yesterday when I saw her was stable. On 2 liters of oxygen, she was 94%. She was afebrile. Blood pressure 130/70 and her pulse was 60, respirations 18-22. Chest was clear. There was very minimal wheezing. No basilar rales or congestion. She had a regular rhythm with no harsh murmur, audible S3 and there was no edema. She was discharged home on August 21 by the hospitalist. I will see her back in the office in two weeks and will discuss rehab which she is interested in but she will need cardiac clearance and probably benefit from cardiac rehabilitation with monitoring in light of the ischemic heart disease. MD CHANEL Milner/DAV /3:24 PM /8:04 PM
== END 2016-08-21 16:06 | disposition home or self-care (01) | DRG 190 ==
LOC: NEPE 14:35 → NEDA 17:37 → N04A 22:24
PROVIDERS: ADMIT Hospitalist; ATTEND Hospitalist
DX: J44.1 Chronic obstructive pulmonary disease with (acute) exacerbation (principal); I21.4 Non-ST elevation (NSTEMI) myocardial infarction; I42.9 Cardiomyopathy, unspecified; I13.0 Hypertensive heart and chronic kidney disease with heart failure and stage 1 through stage 4 chronic kidney disease, or unspecified chronic kidney disease; I50.9 Heart failure, unspecified; Z99.81 Dependence on supplemental oxygen; N18.3 Chronic kidney disease, stage 3 (moderate); E78.5 Hyperlipidemia, unspecified; F32.9 Major depressive disorder, single episode, unspecified; F41.9 Anxiety disorder, unspecified; K59.00 Constipation, unspecified; N32.81 Overactive bladder; M19.90 Unspecified osteoarthritis, unspecified site; K21.9 Gastro-esophageal reflux disease without esophagitis; G47.30 Sleep apnea, unspecified; R09.02 Hypoxemia; I25.9 Chronic ischemic heart disease, unspecified; R73.9 Hyperglycemia, unspecified; I25.2 Old myocardial infarction; Z87.891 Personal history of nicotine dependence; T38.0X5A Adverse effect of glucocorticoids and synthetic analogues, initial encounter
CPT/HCPCS: 36600; 71010; 71275; 80048; 80053; 82805; 82948; 83036; 83735; 83880; 84484; 85025; 85610; 85730; 93005; 93306; 94150; 94640; 94664; 96372; 96374; 96375; J1650; J1815; J1956; J2920; J2930; J7512; Q9967